=== PATIENT | male | born 1960 | race Caucasian/White ===

== ENCOUNTER 2025-05-21 10:02 | Outpatient (AMB) | payer BC, SELFPAY ==
--- OUTSIDE RECORDS SUMMARY | 2025-02-26 10:00 | XMS_ITS ---
Author Organization Pending [facility] To [facility] Address [address] [place] [phone] Care Team Providers Care Sharepoint Application Developer Name Role Phone William Castro Primary Care Provider Rocky Terrazas Unavailable [phone] REASON FOR VISIT 6 month f/u migraine Encounters Encounter Location Date Provider Diagnosis Pending [facility] To [facility] [address] [address] 02/26/2025 Rocky Flores Plan Of Treatment No Information Progress Notes * DANIELA ALVESDOB:[birth year] (65 yo M)Acc No.[id number]:02/26/2025 Progress Notes Patient: DANIELA SANZ Provider: Michael Flores :1960 A ge:64 Y S ex:Male Date:02/26/2025 Address:[address] [place] [address] [id number] Pcp:William Castro Subjective: * Chief Complaints: * 1 . 6 month f/u migraine. * Medical History: Objective: * Vitals: Assessment: Plan: * Treatment: * * Electronic signature of Madi Flores M.D. on 05/21/2025 at 11:04 AM EDT Sign off status: Pending * Provider: Michael Flores Date: 02/26/2025 Generated for Angelai ng/Faxing/eTransmitting on: 0 05/21/2025 11:04 AM EDT
--- OUTSIDE RECORDS SUMMARY | 2025-03-13 09:00 | XMS_ITS ---
Author Organization [facility] [employer] [facility] Address [address] [place] [phone] Care Team Providers Care Government Contracts Manager Name Role Phone William Castro Primary Care Provider Rocky Terrazas Unavailable [phone] REASON FOR VISIT 1 yr Fu Encounters Encounter Location Date Provider Diagnosis [facility] [email or web address] [address] [address] 03/13/2025 Rocky Flores Plan Of Treatment No Information Progress Notes * DANIELA ALVESDOB:[birth year] (65 yo M)Acc No.[id number]:03/13/2025 Progress Notes Patient: DANIELA SANZ Provider: Michael Flores :1960 A ge:64 Y S ex:Male Date:03/13/2025 Address:[address] [place] [address] [id number] Pcp:William Castro Subjective: * Chief Complaints: * 1 . 1 yr Fu. * Medical History: Objective: * Vitals: Assessment: Plan: * Treatment: * * Electronic signature of Madi Flores M.D. on 05/21/2025 at 11:04 AM EDT Sign off status: Pending * Provider: Michael Flores Date: 0 03/13/2025 Generated for Supriya montesinos/Brenna/eTransmitting on: 0 05/21/2025 11:04 AM EDT
--- OUTSIDE RECORDS SUMMARY | 2025-03-19 06:15 | XMS_ITS ---
Author Organization [facility] [employer] [facility] Address [address] [place] [phone] Care Team Providers Care Library Clerical Assistant Name Role Phone William Castro Primary Care Provider Rocky Terrazas Unavailable [phone] REASON FOR VISIT [place] out of office - RSC to 1:15pm Encounters Encounter Location Date Provider Diagnosis [facility] [address] [address] 03/19/2025 Rocky Flores Plan Of Treatment No Information Progress Notes * DANIELA ALVESDOB:[birth year] (65 yo M)Acc No.[id number]:03/19/2025 Progress Notes Patient: DANIELA SANZ Provider: Michael Flores :1960 A ge:64 Y S ex:Male Date:03/19/2025 Address:[address] [place] [address] [id number] Pcp:William Castro Subjective: * Chief Complaints: * 1 . [place] out of office - RSC to 1:15pm. * Medical History: Objective: * Vitals: Assessment: Plan: * Treatment: * * Electronic signature of Madi Flores M.D. on 05/21/2025 at 11:05 AM EDT Sign off status: Pending * Provider: Michael Flores Date: 0 03/19/2025 Generated for Printi ng/Faxing/eTransmitting on: 0 05/21/2025 11:05 AM EDT
--- OUTSIDE RECORDS SUMMARY | 2025-03-19 09:15 | XMS_ITS ---
Author Organization [facility] Address [address] [place] [phone] Care Team Providers Care Business Management Professor Name Role Phone William Castro Primary Care Provider Rocky Terrazas Unavailable [phone] REASON FOR VISIT pt called to r/s he is on vacation Encounters Encounter Location Date Provider Diagnosis [facility] [employer] [address] [address] 03/19/2025 Rocky Flores Plan Of Treatment No Information Progress Notes * DANIELA ALVESDOB:[birth year] (65 yo M)Acc No.[id number]:03/19/2025 Progress Notes Patient: DANIELA SANZ Provider: Michael Flores :1960 A ge:64 Y S ex:Male Date:03/19/2025 Address:[address] [place] [address] [phone] Pcp:William Castro Subjective: * Chief Complaints: * 1 . Pt called to r/s he is on vacation. * Medical History: Objective: * Vitals: Assessment: Plan: * Treatment: * * Electronic signature of Madi Flores M.D. on 05/21/2025 at 11:04 AM EDT Sign off status: Pending * Provider: Michael Flores Date: 0 03/19/2025 Generated for Angelai ng/Fakaterynag/eTransmitting on: 0 05/21/2025 11:04 AM EDT
--- NOTE | 2025-05-21 10:04 | A.OFFVIS_ITS ---
Vital Signs 05/21/25 10:10 Height 6 ft Weight 250 lb BMI 33.9 BP 130/66 Blood Pressure Location Rt brachial Position Sitting Pulse 72 Pulse Source Pulse Oximeter Pulse Oximetry (%) 97 Oxygen Delivery Method Room Air Intake Visit Reasons: colo screening, constipation Intake Note: New pt for initial eval for constipation, rectal pain, hemorrhoids. CC: C.O. hx of constipation, hemorrhoids w/ intermittent pain. Pt reports previously being established with [facility] but did not have a positive experience with that group. Pt had a colo last year with their office but re ports that he has regularly had issues with his prep despite following the instructions perfectly. Office Messenger Helper Required: No Accompanied by: Self / Same As Patient Allergies amoxicillin Allergy (Unknown, Verified 05/21/25 10:05) Unknown Sulfa (Sulfonamide Antibiotics) Allergy (Unknown, Verified 05/21/25 10:05) Unknown HPI HPI colo screening, constipation: Details: 65 year old? male with past medical history of hypothyroidism, hypertension is here today for pre colonoscopy screening.? Patient was sent to us by his PCP.? Last colonoscopy year ago. Patient had suboptimal prep and was recommended to repeat colonoscopy in 1-2 years. Patient reports constipated. Currently is taking MiraLax.? Patient denies dyspepsia, dysphagia or odynophagia.? Denies family history of gastrointestinal disease or CRC.? Denies history of difficulty with sedation or anesthesia in the past.? Negative for history of sleep apnea.? Denies any history of cardiac, renal, pulmonary, or hepatic disease.?? No history of infectious? diseases like hepatitis A, B, C, HIV or tuberculosis.? Patient is not on any anticoagulation [facility] Medical History Hypothyroidism HTN (hypertension) Anxiety and depression Surgical History (Updated 05/21/25 @ 10:31 by ANAHY Katz) H/O colonoscopy Family History (Updated 05/21/25 @ 10:34 by ANAHY Katz) Father HTN (hypertension) Atrial fibrillation Prostate CA Sepsis Mother Seizure Stroke HTN (hypertension) Review of Systems Const Denies weight gain and Denies weight loss ENT Reports no additional complaints, Denies dysphagia and Denies odynophagia Card Reports no additional complaints Resp Reports no additional complaints GI Denies abdominal pain, Denies belching, Denies melena, Denies bloating, Denies change in bowel habits, Reports constipation, Denies dysphagia, Denies excessive flatus, Denies dyspepsia, Denies heartburn, Denies diarrhea, Denies loose stools, Denies nausea, Denies odynophagia and Denies vomiting Reports no additional complaints Musc Reports no additional complaints Neuro Reports no additional complaints Psych Reports no additional complaints Endo Reports no additional complaints Physical Exam Vital Signs: Last Vital Signs Pulse 72 05/21/25 10:10 BP 130/66 05/21/25 10:10 Pulse Ox 97 05/21/25 10:10 Oxygen Delivery Method Room Air 05/21/25 10:10 BMI result Body Mass Index 33.9 Const General: healthy appearing, no acute distress and well developed Nutritional Appearance: well nourished and obese Orientation/consciousness: patient oriented x3 Resp Effort & Inspection: normal respiratory effort, able to speak in complete sentences, no tracheal deviation and symmetric chest movement Auscultation: clear to auscultation bilaterally Cardio Rate: regular rate GI Inspection: Yes normal to inspection, No distended and Yes obesity Palpation (GI): Soft to palpation, not firm, nontender and No hepatosplenomegaly present Auscultation: normal bowel sounds General: Yes no CVA tenderness Back/Spine/Pelvis Back: no CVA tenderness Skin General skin exam: elasticity normal, turgor normal and dry skin Neuro General: patient oriented x3 Psych Appearance: grossly normal Mental Status: mental status grossly normal Assessment & Plan Assessment & Plan (1) Screen for colon cancer: Code(s): Z12.11 - Encounter for screening for malignant neoplasm of colon Plan Patient denies any cardiac or respiratory symptoms.? Denies any issues with anesthesia in the past.? Denies any history of sleep apnea.? No history infectious diseases in the past or present.? Not on any anticoagulation therapy.? No family l history of colon cancer.? Patient reports constipation, currently taking Maalox. Will start him on Dulcolax daily. Patient denies melena, hematochezia, unintentional weight loss or ribbon like stools.? Discussed at length the pre-procedure,? prep, diet & medications as well as what to expect prior, during and after the procedure.?? Stressed the importance of good bowel prep.? Recommended the use of Vaseline or Calmoseptine OTC & baby wipes with bowel movements to promote comfort.? ?Patient verbalizes understanding and agrees to plan of care.? He was given the opportunity to ask questions and all questions answered.? We will see him after the procedure.? Orders: Referrals GI Procedure Notification Z12.11 - Encounter for screening for malignant neoplasm of colon Medications: New bisacodyl (Dulcolax (bisacodyl)) 10 mg (2 x 5 mg) PO BEDTIME 180 tabs 4RF polyethylene glycol 3350 (Miralax) As directed by gastro[facility]ology department at [facility] 238 grams PO ONCE 238 grams 0RF Z12.11 - Encounter for screening for malignant neoplasm of colon Coding Level of Care Code New Pt Level 3 (77611) Diagnoses Screen for colon cancer Z12.11 Time Spent (min) 40 Comment 30 minutes spent with patient and additional 10 minutes spent reviewing his records
[2025-05-21 10:10] VITALS: BP 130/66; PULSE 72; O2SAT 97; BMI 33.9
--- OUTSIDE RECORDS SUMMARY | 2025-05-21 11:03 | XMS_ITS | Clinical Summary ---
Author Organization [facility] Address [address] [place] [address] Care Team Providers Care Office Services Clerk Name Role Phone William Castro MD Primary Care Provider Allergies Active Allergy Reactions Criticality Noted Date Comments Amoxicillin Rash/Dermatitis Low 11/01/2023 Sulfa Antibiotics Rash/Dermatitis Low 11/01/2023 Medications No known medications Active Problems No known active problems Social History Tobacco Use Types Packs/Day Years Used Date Smoking Tobacco: Never Assessed Sex and Gender Information Value Date Recorded Sex Assigned at Not on file Legal Sex Male 3:36 PM EST Gender Identity Not on file Sexual Orientation Not on file Plan of Treatment Health Maintenance Due Date Last Done Comments Hepatitis C Virus Screening 1960 HIV Screening 1975 DTaP/Tdap/Td Vaccines (1 - Tdap) 1981 Colonoscopy 2007 Pneumococcal Vaccines 50+ (1 of 1 - PCV) 2012 Zoster (Shingles) Vaccine (1 of 2) 2012 Influenza Vaccine 03/22/2025 COVID-19 Vaccine (1 - 2023-2 5 season) 2025 RSV Vaccine 60 years and old er and Patients (1 - 1-dose 75+ series) 2037 Hepatitis B Vaccines Aged Out No long er eligible based on patient's age to complete this topic Insurance [facility] - PPO Care Teams Office Services Clerk Relationship Specialty Start Date End Date William Castro MD [address] [address] PCP - General 11/01/23
--- OUTSIDE RECORDS SUMMARY | 2025-05-21 11:04 | XMS_ITS | Patient Health Record ---
Author Organization [facility] Address [address] [place] [address] Care Team Providers Care One Piece Expansion Maker Hand Name Role Phone William Castro Primary Care Provider Unavailabl e Allergies Allergen (clinical drug ingredient) Drug/Non Drug Allergy documented on EMR Reaction Allergy Type Onset Date Status amoxicillin Amoxicillin Unknown Drug Allergy Act daryl Substance with sulfonamide structure and antibacterial mechanism of action (substance) Sulfa Antibiotics Unknown Drug Allergy Active Reason For Referral No Information Medications Medication SIG (Take, Route, Frequency, Duration) Notes Start Date End Date Status Levothyroxine Sodium 112 MCG 1 tablet in the morning on an empty stomach Orally Once a day Active hydroCHLOROthiazide 25 MG 1 tablet in th e morning Orally Once a day Active Magnesium Oxide 400 (240 Mg) MG 1 tablet with food Orally Once a day Active Losartan Potassium 100 MG 1 tablet Orall y Once a day Active Sildenafil Citrate 100 MG 1 tablet as ne eded Orally Once a day Active Rizatriptan Benzoate 10 MG 1 tablet Oral ly Once a day Active Topamax 100 MG 1 tablet Orally Twic e a day Active Verapamil HCl ER 120 MG 1 capsule Orally Twice a day Active Plan Of Treatment Pending Test Test Name Order Date X ray : Foot, right 3v 09/16/2021 Insurance Providers Payer Name Payer Address Payer Phone Subscriber Number Group Number Insured Name Patient Relationship to Insured Coverage Start Date Coverage End Date [facility] [address] [place] [phone] [id number] Sandoval Gamble Self - patient is the insured Medical (General) History Medical History History ICD Code apnea gastroesophageal reflux hyperlipidemia hypertension hypothyroidism impotence migraine obesity obsessive compulsive disorders Surgical History Surgery Date(Month/Year) right index finger cyst removed 2020 4 wisdom teeth removed Hospitalization History Reason Date(Month/Year) migraines X 4 in the past 10 years
--- OUTSIDE RECORDS SUMMARY | 2025-05-21 11:05 | XMS_ITS | Encounter Summary ---
Author Organization [facility] Address [address] [place] [address] Care Team Providers Care Supervisor Rough End Name Role Phone William Castro MD Primary Care Provider [phone] Encounter Details Date Type Department Care Team (Late st Contact Info) Description 11/01/2023 Scanned Document [facility] [address] [place] [address] Benny Rose MD [address] [place] [address] Social History Tobacco Use Types Packs/Day Years Used Date Smoking Tobacco: Never Assessed Sex and Gender Information Value Date Recorded Sex Assigned at Not on file Legal Sex Male 3:36 PM EST Gender Identity Not on file Sexual Orientation Not on file documented as of this encounter Plan of Treatment Not on file documented as of this encounter Visit Diagnoses Not on filedocumented in this encounter Care Teams Supervisor Rough End Relationship Specialty Start Date End Date William Castro MD [address] [address] PCP - General 11/01/23 documented as of this encounter
--- OUTSIDE RECORDS SUMMARY | 2025-05-21 11:05 | XMS_ITS ---
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
--- OUTSIDE RECORDS SUMMARY | 2025-05-21 11:05 | XMS_ITS | Patient Health Record ---
Author Organization [facility] Address [address] [place] [address] Support Name Relationship Address Phone Matthew Thomas Emergency Contact [address] [place], [place] [phone] Sandoval Gamble Guarantor Unknown [phone] Reason For Referral No Information Medications Medication SIG (Take, Route, Frequency, Duration) Notes Start Date End Date Status Rizatriptan Benzoate 10 MG 9 Oral 1 at the onset of migraine, may repeat another dose in 2 hours if needed; Duration: 30 12/04/2014 Active SUMATRIPTAN SUCC 100 MG TABLET 9 Take 1 tab at onset of migraine. May repeat after 2 hours if headache recurs.; Duration: 30 *please review for potential update for e-prescription and drug interaction check* 09/05/2012 Active Vitamin B-2 100 mg 120 Oral Take 2 tabs bid with meals (4 tabs qd).; Duration: 30 09/05/2012 Active CAMBIA 50 MG POWDER PACKET 0 *please review for potential update for e-prescription and drug interaction check* jairon 12/04/2014 Active VALSARTAN-HYDROCHLORO THIAZIDE 160-25 MG TAB 0 1 qam x 3 yrs HTN *please review for potential update for e-prescription and drug interaction check* 11/07/2012 Active CPAP 0 x 2007 *please review f or potential update for e-prescription and drug interaction check* 09/04/2012 Active VALSARTAN-HYDROCHLORO THIAZIDE 80-12.5 MG TAB 0 2 qam x 3 yrs HTN *please review for potential update for e-prescription and drug interaction check* ae:0 09/04/2012 Active CYMBALTA 60 MG CAPSULE 30 Take 1 at bedtime; Duration: 30 *please review for potential update for e-prescription and drug interaction check* ae: constipation, dry mouth 06/05/2012 Active VERAPAMIL ER 240 MG TABLET 30 1 qhs for hypertension *please review for potential update for e-prescription and drug interaction check* 01/11/2013 Active FISH OIL 1,000 MG CAPSULE 340-1,000 0 2 qam *please review for potential update for e-prescription and drug interaction check* 09/04/2012 Active VITAMIN D 2,000 UNIT SOFTGEL 0 1 qam *please review for potential update for e-prescription and drug interaction check* 09/04/2012 Active MAGNESIUM 400 MG CAPS 60 Take 1 twice daily; Duration: 30 *please review for potential update for e-prescription and drug interaction check* 06/05/2014 Active MIRALAX POWDER PACKET 17 GRAM 0 1 qam *please review for potential update for e-prescription and drug interaction check* 12/17/2012 Active acetaZOLAMIDE 250 MG 50 Oral 2 tabs q6h prn during severe migraine.; Duration: 30 12/18/2012 Active MULTIVITAMINS TABLET 0 *please rev iew for potential update for e-prescription and drug interaction check* 01/10/2013 Active clonazePAM 0.5 MG 0 Oral 1-2 qd prn for anxiety/PA ae:0 08/31/2012 Active NAPROXEN SODIUM 220 MG TAB 0 2-3 prn migraine *please review for potential update for e-prescription and drug interaction check* 09/05/2012 Active Levothyroxine Sodium 75 MCG 0 Oral 1 qam x 2 yrs 09/04/2012 Active SUMATRIPTAN 6 MG/0.5 ML INJECT 6 1 dose SC at the onset of a severe migraine, no more than 2 triptans in 24 hours; Duration: 30 *please review for potential update for e-prescription and drug interaction check* 04/29/2015 Active Plan Of Treatment No Information Insurance Providers Payer Name Payer Address Payer Phone Subscriber Number Group Number Insured Name Patient Relationship to Insured Coverage Start Date Coverage End Date [place] [address] [place] [id number] Sandoval Gamble Self - patient is the insured [facility] [id number] [place] [id number] Sandoval Gamble Self - patient is the insured
--- OUTSIDE RECORDS SUMMARY | 2025-05-21 11:05 | XMS_ITS | Patient Health Record ---
Author Organization [employer] Address [address] [address] Care Team Providers Care [employer] Name Role Phone William Castro Primary Care Provider Rocky Terrazas Unavailable [phone] Allergies Allergen (clinical drug ingredient) Drug/Non Drug Allergy documented on EMR Reaction Allergy Type Onset Date Status amoxicillin Amoxicillin Unknown Drug Allergy Act daryl Substance with sulfonamide structure and antibacterial mechanism of action (substance) Sulfa Antibiotics Unknown Drug Allergy Active Reason For Referral No Information Medications Medication SIG (Take, Route, Frequency, Duration) Notes Start Date End Date Status MiraLax Orally Active Vitamin B12 100 MCG 1 tablet Orally BID Not-Taking Vitamin D 2000 UNIT Orally Active SUMAtriptan Succinate 6 MG/0.5ML INJECT 0.5ML SUBCUTANEOUSLY TWICE A DAY NEEDED FOR SEVERE MIGRAINE; Duration: 30 Not-Taking Levothyroxine Sodium 175 MCG 1 tablet Orally Once a day Active Magnesium Oxide 400 (240 Mg) MG TAKE 1 TABLET BY MOUTH TWICE A DAY WITH FOOD; Duration: 90 Not-Taking Cambia 50 MG mix with 4oz water and drink at the onset of RIOS; limit to 2times/wk Orally Once a day; Duration: 30 days Active Fish Oil 1000 MG 1 capsule Orally Onc e a day Active clonazePAM 0.5 MG 1 tablet Orally Once a day Active Rizatriptan Benzoate 10 MG 1 tablet as n eeded one time Orally 1 dose onset migraine/may repeat in 2 hours if needed; Duration: 30 days Active Cymbalta 60 MG 1 capsule Orally Onc e a day Active Verapamil HCl ER 240 MG 1 tablet Orally Once a day Active Magnesium Oxide -Mg Supplement 400 MG TAKE 1 CAPSULE BY MOUTH TWICE A DAY WITH FOOD; Duration: 90 Active Alfuzosin HCl ER 10 MG 1 tablet immediat sherine after the same meal Orally Once a day; Duration: 30 day(s) Active SUMAtriptan Succinate 6 MG/0.5ML 0.5 ml as needed Subcutaneous Twice a day as needed as directed for severe migriaine; Duration: 30 days Active Topiramate 100 MG 1 tablet Orally Once a day; Duration: 90 days Active Losartan Potassium 100 MG 1 tablet Orall y Once a day; Duration: 30 day(s) Active hydroCHLOROthiazide 25 MG 1 tablet in morning Orally Once a day; Duration: 30 day(s) Active Vitamin B2 Active Topamax 100 MG 1 tablet Orally maan y at bedtime; Duration: 30 Not-Taking Social History Tobacco use other than smoking: Question Answer Notes Are you an other tobacco user? No Problems Problem Type SNOMED Code ICD Code Onset Dates Problem Status W/U Status Risk Notes Problem Migraine with aura (6077773) Migraine with aura, not intractable, without status migrainosus (G43.109) Active confirmed Problem Anxiety (03070405) Anxiety (F41.9) Active confirmed Problem Hypertension (50920257) Hypertension (I10) Active confirmed Problem Sleep apnea (53081193) Sleep apnea (G47.30) Active confirmed Problem Obsessive compulsive disorder (607153671) Obsessive compulsive disorder (F42) Active confirmed Problem Obsessive-compul sive disorder (990101912) Obsessive-compul sive disorder, unspecified type (F42.9) Active confirmed Vital Signs Heart Rate 59 /min 09/13/2024 Blood pressure diastolic 74 mm Hg 09/13/2024 Height 72 in 09/13/2024 Blood pressure systolic 151 mm Hg 09/13/2024 Weight 245 lbs 09/13/2024 BMI 33.22 kg/m2 09/13/2024 Encounters Encounter Location Date Provider Diagnosis [facility] [address] [place] [address] [address] [place] [address] 09/13/2024 Shivang Flores Migraine with aura, not intractable, without status migrainosus G43.109 ; Sleep apnea G47.30 ; Hypertension I10 and Anxiety F41.[address] [facility] [place] [address] [address] [place] [address] 06/05/2024 Shivang Flores Migraine with aura, not intractable, without status migrainosus G43.[address] [address] 06/08/[address] [address] 07/04/2024 [facility] [address] [address] 08/30/[address] [address] 09/04/[address] [address] 09/11/[address] [address] 10/15/[address] [address] [facility] Ass[facility] Encounter Date Diagnosis (ICD Code) Assessment Notes Treatment Notes Treatment Clinical Notes Section Notes 06/05/2024 Migraine with aura, not intractable, without status migrainosus (ICD-10 - G43.109) 09/13/2024 Migraine with aura, not intractable, without status migrainosus (ICD-10 - G43.109) Impression 1. Migraine with aura, not intractable Overall doing well when he has his acute medications available. cambia was denied, however patient has tried diclofenac, indomethacin, ibuprofen, naproxen without having similar benefits to oral solution of diclofenac which is FDA approved for treatment a migraine. Patient will seek to obtain prior authorization. Continue Topamax 2. Sleep apnea Can certainly be a risk factor for increased frequency of migraines, risk factor for cerebrovascular disease, advised to continue to use CPAP machine 3. Hypertension Currently controlled, continue follow-up with primary care regarding this, heart rate appeared to be low today, advised to discuss antihypertensive medications with primary care. However he remains asymptomatic. 4. Anxiety, OCD I do feel comfortable using a triptan, even the patient is on a SNRI, risk versus benefits discussed, rare potential adverse effects, I do feel comfortable nevertheless. 09/13/2024 Sleep apnea (ICD-10 - G47.30) Impression 1. Migraine with aura, not intractable Overall doing well when he has his acute medications available. cambia was denied, however patient has tried diclofenac, indomethacin, ibuprofen, naproxen without having similar benefits to oral solution of diclofenac which is FDA approved for treatment a migraine. Patient will seek to obtain prior authorization. Continue Topamax 2. Sleep apnea Can certainly be a risk factor for increased frequency of migraines, risk factor for cerebrovascular disease, advised to continue to use CPAP machine 3. Hypertension Currently controlled, continue follow-up with primary care regarding this, heart rate appeared to be low today, advised to discuss antihypertensive medications with primary care. However he remains asymptomatic. 4. Anxiety, OCD I do feel comfortable using a triptan, even the patient is on a SNRI, risk versus benefits discussed, rare potential adverse effects, I do feel comfortable nevertheless. 09/13/2024 Hypertension (ICD-10 - I10) Impression 1. Migraine with aura, not intractable Overall doing well when he has his acute medications available. cambia was denied, however patient has tried diclofenac, indomethacin, ibuprofen, naproxen without having similar benefits to oral solution of diclofenac which is FDA approved for treatment a migraine. Patient will seek to obtain prior authorization. Continue Topamax 2. Sleep apnea Can certainly be a risk factor for increased frequency of migraines, risk factor for cerebrovascular disease, advised to continue to use CPAP machine 3. Hypertension Currently controlled, continue follow-up with primary care regarding this, heart rate appeared to be low today, advised to discuss antihypertensive medications with primary care. However he remains asymptomatic. 4. Anxiety, OCD I do feel comfortable using a triptan, even the patient is on a SNRI, risk versus benefits discussed, rare potential adverse effects, I do feel comfortable nevertheless. 09/13/2024 Anxiety (ICD-10 - F41.9) Impression 1. Migraine with aura, not intractable Overall doing well when he has his acute medications available. cambia was denied, however patient has tried diclofenac, indomethacin, ibuprofen, naproxen without having similar benefits to oral solution of diclofenac which is FDA approved for treatment a migraine. Patient will seek to obtain prior authorization. Continue Topamax 2. Sleep apnea Can certainly be a risk factor for increased frequency of migraines, risk factor for cerebrovascular disease, advised to continue to use CPAP machine 3. Hypertension Currently controlled, continue follow-up with primary care regarding this, heart rate appeared to be low today, advised to discuss antihypertensive medications with primary care. However he remains asymptomatic. 4. Anxiety, OCD I do feel comfortable using a triptan, even the patient is on a SNRI, risk versus benefits discussed, rare potential adverse effects, I do feel comfortable nevertheless. Plan Of Treatment No Information Insurance Providers Payer Name Payer Address Payer Phone Subscriber Number Group Number Insured Name Patient Relationship to Insured Coverage Start Date Coverage End Date [facility] [address] [place] [address] [id number] DANIELA ALVES Self - patient is the insured Medical (General) History Medical History History ICD Code hypertension sleep apnea migraines anxiety Surgical History Surgery Date(Month/Year) oral cyst removal from finger Hospitalization History Reason Date(Month/Year) migraine related x3
== END 2025-05-21 10:42 | disposition home or self-care (01) ==
LOC: HO.HGI 10:02
PROVIDERS: PCP Internal Medicine; Visit Provider Nurse Practitioner Family
DX: Z01.818 Encounter for other preprocedural examination (principal); Z12.11 Encounter for screening for malignant neoplasm of colon
CPT/HCPCS: S0285